=== PATIENT | female | born 1990 | race Caucasian/White ===

== ENCOUNTER 2017-09-15 22:25 | Emergency (ER) | payer SELFPAY ==
[2017-09-15] MEDS ORDERED: Famotidine 20 MG/2 ML SDV IVPUSH ONE (22:27)
[2017-09-15] MEDS ORDERED: Pantoprazole 40 MG Vial IVPUSH ONE (22:27)
[2017-09-15] MEDS ORDERED: Ondansetron 4 MG/2 ML SDV IVPUSH ONE (22:27)
[2017-09-15] MEDS ORDERED: Lactated Ringers 1,000 ML IV ONE (22:27)
--- NOTE | 2017-09-15 22:27 | EDM.PDOC ---
ED HPI GENERAL MEDICAL PROBLEM - General Chief Complaint: Abdominal Pain Stated Complaint: abd pain Time Seen by Provider: 09/15/17 22:27 Source of Information: Reports: Patient, Family (Sister and [id number]). Denies: Old Records ([facility] chart/EMR) History Limitations: Reports: Language Barrier - History of Present Illness INITIAL COMMENTS - FREE TEXT/NARRATIVE: The patient was brought to the emergency room via private automobile by her sister and [id number] for evaluation of severe epigastric abdominal pain symptoms starting at about 20:00 hours this evening. She does have some mild nausea without emesis to this point. Patient did have 2 loose bowel movements earlier today. She denies any gross hematuria, colic, or other UTI symptoms. The patient does have a long history of gastritis with current Prilosec use. She denies any known exposure to infection. No recent history of other abdominal pain, heartburn, melena, gross hematochezia, or any food intolerance, including fatty foods, etc.. The patient also denies any recent fever, cough, wheezing, dyspnea, etc.. History difficult secondary to patient not speaking [place]. Onset: Today, Sudden Onset Date: 09/15/17 Onset Time: 20:00 Duration: Constant, Getting Worse Location: Reports: Abdomen. Denies: Head, Face, Neck, Chest, Back, Radiates to Quality: Reports: Same as Previous Episode, Sharp Severity: Severe Improves with: Reports: None Worsens with: Reports: None Context: Reports: Other (As above) Associated Symptoms: Reports: Nausea/Vomiting. 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 Denies: EGD Female Surgical History: Reports: Section Social & Family History - Tobacco Use Smoking Status *Q: Never Smoker Used Tobacco, but Quit: No Smoking Cessation Information Provided To Patient: No Second Hand Smoke Exposure: No Second Hand Smoke Education Provided: No ED ROS GENERAL - Review of Systems Review Of Systems: ROS reveals no pertinent complaints other than HPI. ED EXAM, GI/ABD - Physical Exam Exam: See Below Exam Limited By: No Limitations General Appearance: Alert, WD/WN, Anxious (Mild), Mild Distress Eyes: Bilateral: Normal Appearance (No nystagmus), EOMI Ears: Normal External Exam, Normal Canal, Hearing Grossly Normal, Normal TMs Nose: Normal Inspection, Normal Mucosa, No Blood Throat/Mouth: Normal Inspection, Normal Lips, Normal Teeth, Normal Gums, Normal Oropharynx, Normal Voice, No Airway Compromise. No: Dysphagia, Perioral Cyanosis Head: Atraumatic, Normocephalic. No: Facial Swelling, Facial Tenderness, Sinus Tenderness Neck: Normal Inspection, Supple, Non-Tender, Full Range of Motion. No: Lymphadenopathy (L), Lymphadenopathy (R), Thyromegaly Respiratory/Chest: No Respiratory Distress, Lungs Clear, Normal Breath Sounds, No Accessory Muscle Use, Chest Non-Tender. No: Pleural Rub, Retractions Cardiovascular: Normal Peripheral Pulses, Regular Rate, Rhythm, No Edema, No Gallop, No JVD, No Murmur, No Rub. No: Gallop/S3, Gallop/S4, Friction Rub GI/Abdominal Exam: Normal Bowel Sounds, No Organomegaly, No Distention, No Abnormal Bruit, No Mass, Pelvis Stable, Tender (Mild palpation pain in the epigastric region). No: Guarding, Rebound (Female) Exam: Deferred Rectal (Female) Exam: Deferred Back Exam: Full Range of Motion, Other (Mild scoliosis). No: CVA Tenderness (L) , CVA Tenderness (R), Muscle Spasm Extremities: Normal Inspection, Normal Range of Motion, Non-Tender, No Pedal Edema, Normal Capillary Refill. No: Usnil's Sign Neurological: Alert, Oriented, CN II-XII Intact, Normal Cognition, Normal Gait, No Motor/Sensory Deficits Psychiatric: Anxious (Mild). No: Depressed Mood Skin Exam: Warm, Dry, Intact, Normal Color, No Rash. No: Diaphoretic, Ecchymosis, Jaundice, Pallor, Petechiae, Wound/Incision Lymphatic: No Adenopathy Course - Vital Signs Last Recorded V/S: Last Vital Signs Temp 36.1 C 09/16/17 00:39 Pulse 57 L 09/16/17 00:39 Resp 14 09/16/17 00:39 BP 105/57 L 09/16/17 00:39 Pulse Ox 100 09/16/17 00:39 Vital Signs - 24 hr 09/15/17 09/15/17 09/15/17 22:25 22:45 22:59 Temperature [ 36.6 C 36.8 C Temporal] Pulse, 67 54 L 47 L Peripheral [ Left Pulse Oximetry] Respiratory 20 16 14 Rate Blood Pressure 124/73 99/79 116/74 [Right Upper Arm] O2 Sat by Pulse 100 99 100 Oximetry 09/15/17 09/15/17 09/15/17 23:11 23:26 23:41 Temperature [ Temporal] Pulse, 53 L 49 L 52 L Peripheral [ Left Pulse Oximetry] Respiratory 14 14 14 Rate Blood Pressure 117/75 109/66 110/71 [Right Upper Arm] O2 Sat by Pulse 100 100 100 Oximetry 09/15/17 09/16/17 09/16/17 23:54 00:22 00:39 Temperature [ 36.2 C 36.1 C Temporal] Pulse, 58 L 54 L 57 L Peripheral [ Left Pulse Oximetry] Respiratory 14 14 14 Rate Blood Pressure 111/57 L 106/61 105/57 L [Right Upper Arm] O2 Sat by Pulse 100 100 100 Oximetry - Orders/Labs/Meds Orders: Active Orders 24 hr Category Date Time Status Peripheral IV Care [RC] . DIRECTED Care 09/15/17 22:27 Active Abdomen Series w Chest 1V [CR] Stat Exams 09/15/17 22:27 Taken Obtain Past Medical Record [OM.PC] Urgent Oth 09/15/17 22:27 Active Peripheral IV Insertion Adult [OM.PC] Stat Oth 09/15/17 22:27 Ordered Resuscitation Status Stat Resus Stat 09/15/17 22:27 Ordered Labs: Laboratory Tests 09/15/17 09/15/17 09/15/17 Range/Units 22:30 22:30 22:30 WBC 9.0 (4.0-10.2) K/uL RBC 4.97 (3.77-5.09) M/uL Hgb 15.5 (11.7-15.5) g/dL Hct 42.9 (34.0-46.0) % MCV 86.3 (84.0-98.0) fL MCH 31.2 (28.2-33.3) pg MCHC 36.1 H (31.7-36.0) g/dL RDW 12.1 (11.2-14.1) % Plt Count 210 (150-350) K/uL Neut % (Auto) 42.7 L (45.0-80.0) % Lymph % (Auto) 43.9 (10.0-50.0) % [place] % (Auto) 11.7 (2.0-14.0) % Eos % (Auto) 1.3 (0.0-5.0) % Baso % (Auto) 0.4 (0.0-2.0) % Neut # (Auto) 3.82 (1.40-7.00) K/uL Lymph # (Auto) 3.94 H (0.50-3.50) K/uL [place] # (Auto) 1.05 H (0.00-1.00) K/uL Eos # (Auto) 0.12 (0.00-0.50) K/uL Baso # (Auto) 0.04 (0.00-0.20) K/uL PT 10.6 (9.8-11.7) SEC INR 1.0 APTT 26.1 (22.1-29.8) SEC Sodium (136-145) mmol/L Potassium (3.5-5.1) mmol/L Chloride (98-107) mmol/L Carbon Dioxide (21.0-32.0) mmol/L BUN (7-18) mg/dL Creatinine (0.51-1.17) mg/dL Est Cr Clr Drug Dosing mL/min Estimated GFR (MDRD) mL/min Glucose (74-106) mg/dL Lactic Acid (0.4-2.0) mmol/L Uric Acid (2.6-7.2) mg/dL Calcium (8.5-10.1) mg/dL Magnesium (1.8-2.4) mg/dL Total Bilirubin (0.2-1.0) mg/dL AST (15-37) U/L ALT (12-78) U/L Alkaline Phosphatase (46-116) IU/L Total Protein (6.4-8.2) g/dL Albumin (3.4-5.0) g/dL Amylase 54 (25-115) U/L Lipase (73-393) U/L HCG, Qual (NEGATIVE) 09/15/17 09/15/17 09/15/17 Range/Units 22:30 22:30 22:30 WBC (4.0-10.2) K/uL RBC (3.77-5.09) M/uL Hgb (11.7-15.5) g/dL Hct (34.0-46.0) % MCV (84.0-98.0) fL MCH (28.2-33.3) pg MCHC (31.7-36.0) g/dL RDW (11.2-14.1) % Plt Count (150-350) K/uL Neut % (Auto) (45.0-80.0) % Lymph % (Auto) (10.0-50.0) % [place] % (Auto) (2.0-14.0) % Eos % (Auto) (0.0-5.0) % Baso % (Auto) (0.0-2.0) % Neut # (Auto) (1.40-7.00) K/uL Lymph # (Auto) (0.50-3.50) K/uL [place] # (Auto) (0.00-1.00) K/uL Eos # (Auto) (0.00-0.50) K/uL Baso # (Auto) (0.00-0.20) K/uL PT (9.8-11.7) SEC INR APTT (22.1-29.8) SEC Sodium 140 (136-145) mmol/L Potassium 2.9 L* (3.5-5.1) mmol/L Chloride 104 (98-107) mmol/L Carbon Dioxide 21.5 (21.0-32.0) mmol/L BUN 11 (7-18) mg/dL Creatinine 0.67 (0.51-1.17) mg/dL Est Cr Clr Drug Dosing 95.36 mL/min Estimated GFR (MDRD) > 60 mL/min Glucose 113 H (74-106) mg/dL Lactic Acid 3.8 H (0.4-2.0) mmol/L Uric Acid 3.5 (2.6-7.2) mg/dL Calcium 9.5 (8.5-10.1) mg/dL Magnesium 2.0 (1.8-2.4) mg/dL Total Bilirubin 0.6 (0.2-1.0) mg/dL AST 16 (15-37) U/L ALT 21 (12-78) U/L Alkaline Phosphatase 77 (46-116) IU/L Total Protein 8.3 H (6.4-8.2) g/dL Albumin 4.3 (3.4-5.0) g/dL Amylase (25-115) U/L Lipase 142 (73-393) U/L HCG, Qual Negative (NEGATIVE) Meds: Medications Discontinued Medications Generic Name Dose Route Start Last Admin Trade Name Freq PRN Reason Stop Dose Admin Al Hydroxide/Mg Hydroxide 30 ml 09/15/17 22:29 09/15/17 22:38 Gi Cocktail PO 09/15/17 22:30 30 ml ONETIME ONE Administration Famotidine 40 mg 09/15/17 22:27 09/15/17 22:47 Pepcid IVPUSH 09/15/17 22:28 40 mg ONETIME ONE Administration Lactated Ringer's 1,000 mls @ 999 mls/hr 09/15/17 22:27 09/15/17 22:54 Ringers, Lactated IV 09/15/17 23:27 999 mls/hr .BOLUS ONE Administration Ondansetron HCl 4 mg 09/15/17 22:27 09/15/17 22:37 Zofran IVPUSH 09/15/17 22:28 4 mg ONETIME ONE Administration Pantoprazole Sodium 40 mg 09/15/17 22:27 09/15/17 22:43 Protonix Iv IVPUSH 09/15/17 22:28 40 mg ONETIME ONE Administration Potassium Chloride 20 meq 09/16/17 23:13 Klor-Con M20 PO 09/16/17 23:14 ONETIME ONE Potassium Chloride 20 meq 09/15/17 23:37 09/15/17 23:40 Klor-Con M20 PO 09/15/17 23:38 20 meq ONETIME ONE Administration Sodium Chloride 10 ml 09/15/17 22:27 09/15/17 22:59 Saline Flush FLUSH 10 ml ASDIRECTED PRN Administration Keep Vein Open - Radiology Interpretation Free Text/Narrative:: Acute abdominal x-rays shows nonspecific bowel gaseous pattern with no free air , fluid levels, ileus, obstruction, intra-abdominal calcifications, pulmonary infiltrates, cardiomegaly, CHF, etc.. Moderate scoliosis noted. Possible mild pulmonary obstructive disease. Departure - Departure Time of Disposition: 00:50 Disposition: Home, Self-Care 01 Condition: Good Clinical Impression: Peptic reflux disease, Hypokalemia, Elevated lactic acid level, Bradycardia - Discharge Information Prescriptions: Famotidine [Pepcid] 20 mg PO BID #60 tab Instructions: Potassium Content of Foods Referrals: PCP,Unknown [Primary Care Provider] - Forms: ED Department Discharge Additional Instructions: 1. Follow-up with regular provider tomorrow for reevaluation and recommended repeat CBC, potassium level, and lactic acid level. 2. Additional prescription for possible potassium chloride at that time depending on the above test results. 3. [place] diet including encouragement of oral fluids such as sports drinks, etc. for 24-48 hours as directed. Advance to regular high potassium diet as tolerated thereafter. 4. Tylenol 650 mg by mouth every 4 hours when necessary as directed. Absolutely no use of ibuprofen, Aleve, or other NSAIDs 5. Immediately after this visit verify that your cellular telephone's voicemail has been activated and is empty. Also verify that your home telephone 's answering machine is operating properly and has space to receive messages. Note that it is sometimes necessary for us to be able to contact you at a later date to discuss your medical care. - Problem List & Annotations (1) Peptic reflux disease SNOMED Code(s): 547404763 Code(s): K21.9 - GASTRO-ESOPHAGEAL REFLUX DISEASE WITHOUT ESOPHAGITIS Status: Acute Priority: High Onset Date: 09/15/17 Annotation/Comment:: Acute exacerbation of her known previous gastritis. She has been compliant with high-dose Prilosec regimen by her history. Add additional oral Pepcid to her regular course with close follow-up with her new regular provider tomorrow as per discharge instructions. She may also continue to use OTC antacids. The patient and her family do not wish to be hospitalized with further GI workup, including EGD, etc. depending on her clinical course. Overall excellent results with progressive therapy as above. (2) Hypokalemia SNOMED Code(s): 63960945 Code(s): E87.6 - HYPOKALEMIA Status: Acute Priority: High Onset Date: 09/15/17 Annotation/Comment:: Moderate hypokalemia possibly secondary to mild diarrhea today. Possible continuation of additional potassium supplement tomorrow by her provider with only 20 mEq of potassium chloride given today secondary to her gastric discomfort. Patient was given food prior to administration of her potassium chloride, which she tolerated well. Note 1 L IV bolus of lactated Ringer's given in the emergency room. Potassium diet information provided. (3) Elevated lactic acid level SNOMED Code(s): 1770087 Code(s): R79.89 - OTHER SPECIFIED ABNORMAL FINDINGS OF BLOOD CHEMISTRY Status: Acute Priority: High Onset Date: 09/15/17 Annotation/Comment:: Moderate lactic acid elevation today with no clinical evidence of sepsis, including no fever, tachycardia, or leukocytosis. Patient does not wish to be hospitalized. IV fluids given as above. Close follow-up tomorrow as per discharge instructions. (4) Bradycardia SNOMED Code(s): 21318418 Code(s): R00.1 - BRADYCARDIA, UNSPECIFIED Status: Acute Priority: High Onset Date: 09/15/17 Annotation/Comment:: Intermittent bradycardia during today's visit with no clinical orthostasis or other cardiac-type symptoms. Despite somewhat low blood pressure orthostasis, etc. discharge. Follow-up with provider tomorrow as above. - Problem List Review Problem List Initiated/Reviewed/Updated: Yes - My Orders Last 24 Hours: My Active Orders 09/15/17 22:27 Peripheral IV Care [RC] . DIRECTED Abdomen Series w Chest 1V [CR] Stat Obtain Past Medical Record [OM.PC] Urgent Peripheral IV Insertion Adult [OM.PC] Stat Resuscitation Status Stat - Assessment/Plan Last 24 Hours: My Active Orders 09/15/17 22:27 Peripheral IV Care [RC] . DIRECTED Abdomen Series w Chest 1V [CR] Stat Obtain Past Medical Record [OM.PC] Urgent Peripheral IV Insertion Adult [OM.PC] Stat Resuscitation Status Stat Assessment:: As above Plan: As above. Extensive precautions were given to the patient and her family, who are in agreement with the treatment plan. See Patient Instructions for further treatment and plan. 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
[2017-09-15] MEDS ORDERED: GI Cocktail Oral Solution 30 ML PO ONE (22:29)
[2017-09-15 22:50] LABS: CHLORIDE,CL 104 mmol/L (98-107); SODIUM,NA 140 mmol/L (136-145)
[2017-09-15] MEDS: Sodium Chloride 0.9% 10 ML Syringe FLUSH PRN ×3 (22:57→22:59)
[2017-09-15] MEDS ORDERED: Potassium Chloride 20 MEQ Tab.ER PO ONE (23:37)
[2017-09-16] MEDS ORDERED: Potassium Chloride 20 MEQ Tab.ER PO ONE (23:13)
== END 2017-09-16 00:50 | disposition home or self-care (01) ==
LOC: LL.ED 22:25
DX: K21.9 Gastro-esophageal reflux disease without esophagitis (principal); E87.6 Hypokalemia; R74.0 Nonspecific elevation of levels of transaminase and lactic acid dehydrogenase [LDH]; R00.1 Bradycardia, unspecified
CPT/HCPCS: 36415; 74022; 80053; 82150; 83605; 83690; 83735; 84550; 84703; 85025; 85610; 85730; 96361; 96374; 96375; 99284; A9270; C9113; J2405; J7050; J7120; 82272; 87086; S0028